=== PATIENT | female | born 1965 | race Caucasian/White ===

== ENCOUNTER 2018-05-20 05:06 | Emergency (ER) | payer SELFPAY ==
[2018-05-20 05:27] VITALS: BP 135/72
[2018-05-20] MEDS ORDERED: HYDROCODONE/ACETAMINOPHEN 7.5-325 MG TABLET PO ONE (06:39)
--- NOTE | 2018-05-20 07:33 | RADIOLOGY REPORT (SQ) ---
EXAM DESCRIPTION: XR HIP 2 OR MORE VIEWS COMPLETED DATE/TME: 05/20/2018 06:39 CLINICAL HISTORY: 52 years Female, pain COMPARISON: None. Findings: Bones, joints, and soft tissues of the LEFT XR HIP 2 VIEWS appear otherwise intact. IMPRESSION: No acute findings.
[2018-05-20] MEDS ORDERED: KETOROLAC TROMETHAMINE 60 MG/2 ML SDV IM ONE (07:44)
[2018-05-20] MEDS ORDERED: DEXAMETHASONE SOD PHOS INJ 10 MG/1 ML VIAL IM ONE (07:54)
[2018-05-20] MEDS ORDERED: LIDOCAINE 5% (700 MG) TRANSDERMAL ADH..PATCH TP ONE (07:55)
--- NOTE | 2018-05-20 08:02 | ER Document Report ---
HPI - HPI Time Seen by Provider: 05/20/18 07:17 Pain Level: 5 Notes: Patient is a 52-year-old female who presents with chief complaint of left hip pain. 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 She states that around 6 PM last night she felt a pop. She states she took Advil went to sleep and woke up around 3 AM in severe pain. Patient denies any other symptoms, reports normal bowel movements, normal urinary pattern. Patient denies any fever. Patient denies any history of trauma to this area. - CONSTITUTIONAL Constitutional: DENIES: Fever, Chills - REPRODUCTIVE Reproductive: DENIES: : - MUSCULOSKELETAL Musculoskeletal: REPORTS: Extremity pain - L hip Past Medical History - General Information source: Patient - Social History Smoking Status: Current Every Day Smoker Family History: Reviewed & Not Pertinent Patient has suicidal ideation: No Patient has homicidal ideation: No - Past Medical History Cardiac Medical History: Denies: Hx Coronary Artery Disease, Hx Heart Attack, Hx Hypertension Pulmonary Medical History: Reports: Hx Bronchitis, Hx Pneumonia Denies: Hx Asthma, Hx COPD Neurological Medical History: Denies: Hx Cerebrovascular Accident, Hx Seizures Renal/ Medical History: Denies: Hx Peritoneal Dialysis GI Medical History: Reports: Hx Ulcer Musculoskeletal Medical History: Reports Hx Arthritis - back/shoulders/knees/ hand, Reports Hx Fibromyalgia Past Surgical History: Reports: Hx Cholecystectomy - 2011, Hx Hysterectomy - 2002, Hx Orthopedic Surgery - back, Hx Tonsillectomy. Denies: Hx Pacemaker - Immunizations Hx Diphtheria, Pertussis, Tetanus Vaccination: Yes - 2011 Hx Pneumococcal Vaccination: 05/06/12 Vertical Provider Document - CONSTITUTIONAL Notes: PHYSICAL EXAMINATION: GENERAL: Well-appearing, well-nourished and in no acute distress. HEAD: Atraumatic, normocephalic. EYES: Pupils equal round extraocular movements intact, conjunctiva are normal. ENT: Nares patent NECK: Normal range of motion LUNGS: No respiratory distress Musculoskeletal: Normal range of motion, normal pulses distal to injury, no crepitus, no deformity, no ecchymosis noted. NEUROLOGICAL: Normal speech, normal gait. PSYCH: Normal mood, normal affect. SKIN: Warm, Dry, normal turgor, no rashes or lesions noted. - INFECTION CONTROL TRAVEL OUTSIDE OF THE [place] IN LAST 30 DAYS: No Course - Re-evaluation Re-evalutation: X-rays negative for any acute findings to include fracture or dislocation. Cannot rule out tendon or ligament injury. I discussed this with the patient. Patient is going to call her primary care provider this morning for an appointment either this afternoon or tomorrow. I did give patient symptomatic treatment. Patient also offered crutches. Patient agrees with this plan and patient's is at bedside to take her home. Patient is able to get up onto her feet into a standing position without difficulty. - Vital Signs Vital signs: Temp Pulse Resp BP Pulse Ox 98 F 81 16 135/72 H 98 05/20/18 05:23 05/20/18 05:23 05/20/18 05:23 05/20/18 05:23 05/20/18 05:23 Procedures - Immobilization Left hip Immobilizer type: Crutches Discharge - Discharge Clinical Impression: Left hip pain Condition: Stable Disposition: HOME, SELF-CARE Additional Instructions: The x-ray of your left hip was normal today. This does not rule out a ligament or tendon injury. Please take the medications as I have prescribed. Please follow-up with your primary care provider, call them this morning for an appointment. I suspect she may need to have an MRI done that will take a closer look at the ligaments, tendons and musculature. You may also safely take ibuprofen 600 mg every 6 hours with the pain medications that I have prescribed. Return to the emergency department if you develop worsening symptoms. Prescriptions: Lidocaine [Lidoderm 5% (700 mg) Transdermal Patch] 1 patch TP DAILY #30 adh..patch Methocarbamol [Robaxin 500 mg Tablet] 500 mg PO QID #20 tablet Oxycodone HCl/Acetaminophen [Percocet 5-325 mg Tablet] 1 tab PO Q4H PRN #15 tablet PRN Reason: Forms: Return to Work
== END 2018-05-20 09:10 | disposition home or self-care (01) ==
LOC: ER 05:06
DX: M25.552 Pain in left hip (principal); F17.200 Nicotine dependence, unspecified, uncomplicated; Z90.49 Acquired absence of other specified parts of digestive tract; Z90.710 Acquired absence of both cervix and uterus
CPT/HCPCS: 99283; 96372; 73502; J1885; J1100

== ENCOUNTER → 2018-12-26 | Outpatient (CLI) | payer SELFPAY ==
[2018-12-26 11:06] LABS: BACTERIA (WET MOUNT) 3+ BACTERIA SEEN; EPITHELIALS (WET MOUNT) 3+ EPITHELIALS SEEN; T.VAGINALIS (WET MOUNT) NO TRICHOMONAS SEEN; WBCS (WET MOUNT) FEW WBCS SEEN; YEAST (WET MOUNT) NO YEAST SEEN
[2018-12-26 11:28] LABS: A TYPE INFLUENZA AG NEGATIVE (NEGATIVE); B INFLUENZA AG NEGATIVE (NEGATIVE)
[2018-12-26 12:37] LABS: CHLAM PCR NOT DETECTED (NOT DETECT)
== END ==
LOC: LAB 10:55
PROVIDERS: ATTEND Nurse Practitioner Family
DX: N89.8 Other specified noninflammatory disorders of vagina (principal); R30.0 Dysuria; R68.89 Other general symptoms and signs
CPT/HCPCS: 87086; 87088; 87186; 87210; 87491; 87591; 87804

== ENCOUNTER → 2019-01-16 | Outpatient (CLI) | payer SELFPAY | LOC: LAB 20:31 | PROVIDERS: ATTEND Nurse Practitioner Acute Care | DX: R30.0 Dysuria (principal) | CPT/HCPCS: 87086; 87088; 87186 ==